=== PATIENT | male | born 1985 | race Caucasian/White ===

== ENCOUNTER 2025-06-06 19:23 | Emergency (ER) | payer MEDICAID, OTHER ==
[~2025-06-06] VITALS: Ht 188 cm; Wt 90.7 kg
[2025-06-06] MEDS ORDERED: ALBU18HF2 INH (19:47)
[2025-06-06] MEDS ORDERED: ALBUTEROL FS 2.5 MG/3 ML VIAL.NEB ONE (20:01)
[2025-06-06] MEDS ORDERED: IPRATROPIUM NEB FS 0.5 MG/2.5 ML AMPUL.NEB ONE (20:01)
[2025-06-06 20:05] VITALS: O2SAT 96
[2025-06-06] MEDS: ALBUTEROL FS 2.5 MG/3 ML VIAL.NEB NEB ONE (20:09)
[2025-06-06] MEDS: IPRATROPIUM NEB FS 0.5 MG/2.5 ML AMPUL.NEB NEB ONE (20:09)
[2025-06-06 20:20] VITALS: O2SAT 98
[2025-06-06] MEDS ORDERED: BUDE10.2 INH (20:40)
[2025-06-06 20:52] VITALS: BP 142/79; TEMP 209.3; O2SAT 99
== END 2025-06-06 20:53 | disposition home or self-care (01) ==
LOC: ER 19:48
DX: J45.909 Unspecified asthma, uncomplicated (principal); F20.9 Schizophrenia, unspecified; F41.9 Anxiety disorder, unspecified; Z88.0 Allergy status to penicillin; Z79.51 Long term (current) use of inhaled steroids